=== PATIENT | male | born 1950 | race Caucasian/White ===

== ENCOUNTER 2023-10-13 16:53 | Emergency (ER) | payer OTHER, SELFPAY ==
[2023-10-13 16:54] VITALS: BP 108/85; PULSE 70; RESP 16; TEMP 36.8; O2SAT 98; BMI 21.5
--- NOTE | 2023-10-13 17:11 | EDS_ITS ---
HPI History of Present Illness Chief Complaint: Cellulitis Narrative Narrative: 72-year-old male who denies significant past medical history presents with tenderness, pain, redness to his right thigh that he noticed on Wednesday, approximately 2 days ago. He denies any chest pain or shortness of breath. He states that there is a tender area on his right medial thigh. Surrounding it, it has become slightly reddened. He denies any fevers or chills. No exacerbating or alleviating factors. PFSH PFSH Allergy/AdvReac Type Severity Reaction Status Date / Time No Known Allergies Allergy Verified 10/13/23 16:55 Social History Smoking Status: Never smoker ROS ROS ED ROS Narrative Constitutional: No fever, no chills. HEENT: No sore throat. No neck pain. No loss of vision. No rhinorrhea. Cardiovascular: No chest pain. No palpitations. No pedal edema. Respiratory: No cough, no shortness of breath. Abdominal: No abdominal pain. No nausea. No vomiting. Genitourinary: No dysuria. No hematuria. Musculoskeletal: Positive right thigh erythema with tender spot. No arthralgias. Neurologic: No headaches. No dizziness. No lightheadedness. Skin: No rash. No change in color. Psychiatric: No depression. No anxiety. EXAM Physical Exam Narrative Exam Narrative: Afebrile. Vital signs noted. HEENT: Normocephalic. Atraumatic. PERRL, EOMI. Neck soft and supple. No point tenderness or step off. Cardiovascular: Regular rate and rhythm. No murmurs, rubs, or gallops appreciated. Respiratory: No tachypnea. Lungs clear to auscultation bilaterally. Gastrointestinal: Abdomen soft, nontender, with normoactive bowel sounds. No rebound or guarding. Neurological: Awake. Alert. Nonfocal, nonlateralizing. Skin: No rash. Normal color with exception of erythema right medial thigh. No pallor. Musculoskeletal: No pedal edema. Full range of motion extremities. Positive tenderness to palpation with mild surrounding erythema diffusely right medial thigh consistent with superficial thrombophlebitis of varicose vein. Neurovascular intact distally with palpable dorsalis pedis pulse, right. Const Vital Signs: 10/13/23 16:54 Temperature 98.2 F Temperature Source Temporal Pulse Rate 70 Respiratory Rate 16 Blood Pressure 108/85 H Blood Pressure Mean 92 Pulse Ox 98 Oxygen Delivery Method Room Air MDM MDM MDM Narrative Medical decision making narrative: In the differential diagnosis is DVT versus superficial thrombophlebitis of varicose vein versus cellulitis. I have low suspicion for cellulitis because there is no break in the skin, he is afebrile, nontoxic-appearing. DVT ultrasound will be obtained and reviewed. In discussion with the tire service technician, preliminary read shows no evidence of DVT, but there is superficial thrombophlebitis of a varicose vein. At this point in time, I feel he can be discharged to follow-up with his primary care provider and apply warm compresses to the area a few times a day. He will also start a full-strength aspirin for the next week. I feel he can be discharged safely home with follow-up. Return instructions to the emergency department were reviewed. Disposition is discharged home in stable condition. Discharge Plan Triage Chief Complaint: Cellulitis ED Provider: Trevon Coe Dx/Rx/DC Orders Clinical Impression: Superficial thrombophlebitis of right leg, Varicose vein of leg Instructions: ED Thrombophlebitis, Superficial, ED Varicose Veins Primary Care Provider: Gil Manning Referrals: Gil Manning, [Primary Care Provider] - 3-5 Days if not improving Activity Restrictions/Additional Instructions: Apply warm compress to the affected area a few times a day. You may want to start full-strength aspirin for the next week. Print Language: [place] Citizen Disposition Disposition: Home, Self Care
--- NOTE | 2023-10-13 17:24 | US_ITS ---
STUDY: VENOUS DOPPLER ULTRASOUND - RIGHT LOWER EXTREMITY REASON FOR EXAM: Male, 72 years old. RT MID THIGH REDNESS AND PAIN TECHNIQUE: Ultrasound evaluation of the deep vein system to include cole-scale imaging and compression was performed. Cole-scale imaging and Doppler sonographic evaluation, including duplex spectral analysis and qualitative color flow sonography, was performed. COMPARISON: None. FINDINGS: Common Femoral Vein: Normal compression, spontaneity and augmentation. Normal color Doppler. Common Femoral Vein/Greater Saphenous Junction: Normal compression, spontaneity and augmentation. Normal color Doppler. Deep Femoral Vein: Normal compression, spontaneity and augmentation. Normal color Doppler. Femoral Proximal: Normal compression, spontaneity and augmentation. Normal color Doppler. Femoral Middle: Normal compression, spontaneity and augmentation. Normal color Doppler. Femoral Distal: Normal compression, spontaneity and augmentation. Normal color Doppler. Popliteal Vein: Normal compression, spontaneity and augmentation. Normal color Doppler. Posterior Tibial Vein: Normal compression, spontaneity and augmentation. Normal color Doppler. Peroneal Vein: Normal compression, spontaneity and augmentation. Normal color Doppler. Incidental finding of superficial thrombophlebitis of the medial thigh US/Venous Duplex Imag/Limited/Uni IMPRESSION: No evidence for deep venous thrombosis. Superficial thrombophlebitis of the medial thigh Electronically Signed: Lion Sandoval MD at 18:57 EDT ,
[2023-10-13 18:28] VITALS: BP 110/78; PULSE 88; RESP 18; TEMP 36.4; O2SAT 98
== END 2023-10-13 18:29 | disposition home or self-care (01) ==
PROVIDERS: Emergency Provider Emergency Medicine; PCP Family Medicine; Visit Provider Emergency Medicine
DX: I80.01 Phlebitis and thrombophlebitis of superficial vessels of right lower extremity (principal); I83.91 Asymptomatic varicose veins of right lower extremity
CPT/HCPCS: 93971; 99282